=== PATIENT | male | born 1985 | race Caucasian/White ===

== ENCOUNTER 2017-06-27 01:33 | Emergency (ER) | payer OTHER ==
[2017-06-27 01:35] VITALS: BP 144/99
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
== END 2017-06-27 01:50 ==
LOC: ER 01:36
DX: F10.920 Alcohol use, unspecified with intoxication, uncomplicated (principal); Y09 Assault by unspecified means
CPT/HCPCS: 99282; 99283